=== PATIENT | female | born 1995 | race Caucasian/White ===

== ENCOUNTER 2020-08-07 20:37 | Emergency (ER) | payer OTHER, SELFPAY ==
--- NOTE | ~2020-08-07 | US_ITS ---
EXAMINATION: US OB limited DATE: 08/07/2020 23:15 INDICATION: Miscarriage. Early second trimester . TECHNIQUE: Real-time ultrasound of the pelvis was performed. The interpreting radiologist was not pre sent for the study. COMPARISON: None. FINDINGS: There is a single living fetus with heart rate of 150 beats per minute (bpm). The crown rump le ngth measures 9.1 cm which correlates with an estimated gestational age of 15 weeks and 0 days. The p lacenta is anterior with caudal margin 2.7 cm from the internal cervical os which is normal. Amniotic fluid volume is subjectively normal. IMPRESSION: 1. Single living fetus with heart rate of bpm. 2. Gestational age by ultrasound of 15 weeks 0 day(s) +/- 1 week and 2 days with ultrasound estimated date of delivery (JAIRO) of 01/29/2021. Please correlate with clinical information or other ultrasounds for most accurate JAIRO. Reviewed, dictated and finalized at location A. IMPRESSION: 1. Single living fetus with heart rate of bpm. 2. Gestational age by ultrasound of 15 weeks 0 day(s) +/- 1 week and 2 days wit h ultrasound estimated date of delivery (JAIRO) of 01/29/2021. Please correlate wi th clinical information or other ultrasounds for most accurate JAIRO.
[2020-08-07 20:38] VITALS: BP 157/117; PULSE 108; RESP 18; TEMP 36.6; O2SAT 100
[2020-08-07 21:05] LABS: Basophils Percent Auto 0.4 % (0.2-1.2); Eosinophils Absolute Auto 0.1 K/mm3 (0-0.3); Eosinophils Percent Auto 0.7 % (0-4.4); Hematocrit 39.5 % (37.0-47.0); Hemoglobin 13.5 g/dL (12.0-15.0); Immature Granulocyte Absolute 0.03 K/mm3 (0.00-0.031); Immature Granulocyte Percent A 0.3 % (0-0.5); Lymphocytes Absolute Auto 2.34 K/mm3 (0.9-3.2); Mean Corpuscular HGB Conc 34.2 g/dl (32-36); Mean Corpuscular Hemoglobin 28.1 pg (26-34); Mean Corpuscular Volume 82.1 fl (80-100); Mean Platelet Volume 8.9 fl (7.4-10.4); Monocytes Absolute Auto 0.5 K/mm3 (0.1-0.6); Monocytes Percent Auto 4.3 % (2.6-8.5); Neutrophils Absolute Auto 7.7 K/mm3 (1.3-6.7); Neutrophils Percent Auto 72.3 % (45.5-73.1); Platelet Count Result 330 k/mm3 (150-375); Red Blood Count 4.81 M/mm3 (4.2-5.4); Red Cell Distribution Width 12.9 % (11.5-14.5); White Blood Count 10.7 K/mm3 (4.5-10.0)
--- NOTE | 2020-08-07 21:09 | ED.FEMALEGU ---
HPI - Female Genitourinary General Chief complaint: Vaginal Bleeding Stated complaint: possible misscarriage, sent from OB Time Seen by Provider: 08/07/20 20:45 Source: patient and family Limitations: no limitations History of Present Illness HPI Narrative: 25 years old white female, 14 weeks presents with vaginal bleeding and lower abdominal cramps. Started 24 hours ago, spotting, heavy bleeding in the last few hours. Patient is 2, para 0 1. Patient denies any fever, chills, nausea, vomiting, lightheadedness or dizziness. History of anxiety, denies smoking, drinking or using marijuana. Related Data Home Medications Medication Instructions Recorded Confirmed sertraline mg 08/07/20 08/07/20 Allergies Allergy/AdvReac Type Severity Reaction Status Date / Time No Known Allergies Allergy Verified 08/07/20 20:38 Review of Systems Review of Systems: Narrative: CONSTITUTIONAL: Denies fever, chills, or sweats. EYES: Denies visual changes, redness, or discharge. ENT: Denies rhinorrhea, congestion, sore throat, or otalgia. CARDIOVASCULAR: Denies chest pain, palpitations, or edema. RESPIRATORY: Denies cough or dyspnea. GASTROINTESTINAL: Denies abdominal pain, nausea, vomiting, or diarrhea. GENITOURINARY: Denies dysuria or hematuria. SKIN: Denies rash or itching. MUSCULOSKELETAL: Denies back pain, joint pain, or myalgia. NEUROLOGIC: Denies headache, numbness, or weakness. PSYCHIATRIC: Denies anxiety or depression. PMFSH Past Medical History Medical History Anxiety Social History Social History Social History: Patient denies smoking, drinking or using marijuana Second hand tobacco smoke exposure: No Gender identity (if verbalized by the patient): Female Exam Narrative: Exam Narrative: General appearance: Well-developed, well-nourished Skin: Normal color Head: Normocephalic, nontraumatic Eyes: Clear conjunctiva ENT: Oropharynx normal, ears normal, nose normal Neck: Supple, nontender Chest and respiratory: Airway patent, no respiratory distress, no accessory muscle use Heart: Regular rate/rhythm Abdomen: Soft, nontender, no organomegaly, quiet bowel sounds Vascular: Normal peripheral pulses, normal capillary refill. Musculoskeletal: Normal range of motion, nontender back Neurologic: Alert and oriented ?3, [employer] OFF[employer] is normal as tested, no gross motor deficit : External Female Exam: normal external appearance and normal appearance of the urethra Speculum Exam - Vagina: normal appearance of the vagina Speculum Exam - Cervix: normal appearance of the cervix, normal palpation and Cervical os closed Bimanual exam- vagina & uterus: normal bimanual exam Course Course Emergency Course: Stable Vital Signs Vital signs: Vital Signs Temperature 36.6 C 08/07/20 20:38 Pulse Rate 108 H 08/07/20 20:38 Respiratory Rate 18 08/07/20 20:38 Blood Pressure 157/117 H 08/07/20 20:38 Pulse Oximetry 100 08/07/20 20:38 Temperature 36.6 C 08/07/20 20:38 Pulse Rate 108 H 08/07/20 20:38 Respiratory Rate 18 08/07/20 20:38 Blood Pressure 157/117 H 08/07/20 20:38 Pulse Oximetry 100 08/07/20 20:38 MDM - Female Genitourinary MDM Narrative Medical decision making narrative: Vaginal spotting, 14 weeks , unable to detect heart tone, pelvic ultrasound ordered. Further plan to follow. Pelvic exam within normal limits, no vaginal bleeding. Threatened is my concern. Lab Data Result diagrams: 08/07/20 20:59 Labs: Lab Results 08/07/20 08/07/20 Range/Units 20:5
[2020-08-07 23:48] VITALS: BP 141/86; PULSE 78; RESP 18; TEMP 36.9; O2SAT 99
== END 2020-08-07 23:49 | disposition home or self-care (01) ==
PROVIDERS: Emergency Medicine; Emergency Provider Emergency Medicine
DX: O20.0 Threatened abortion (principal); O99.342 Other mental disorders complicating pregnancy, second trimester; F41.9 Anxiety disorder, unspecified; Z3A.14 14 weeks gestation of pregnancy
CPT/HCPCS: 36415; 76815; 84702; 85025; 85461; 99284

== ENCOUNTER 2020-08-09 16:56 | Emergency (ER) | payer OTHER, SELFPAY ==
[2020-08-09 16:59] VITALS: BP 159/107; PULSE 100; RESP 19; TEMP 36.3; O2SAT 100
--- NOTE | 2020-08-09 17:30 | ED.FEMALEGU ---
HPI - Female Genitourinary General Chief complaint: Vaginal Bleeding Stated complaint: 15 wks preg, vb, dizzy Time Seen by Provider: 08/09/20 17:07 History of Present Illness HPI Narrative: 15 weeks . Seen here 2 days ago for vaginal bleeding. Light spotting at that time. Diagnosed with threatened . Bleeding became heavier today. Passing some small clots. Occasional light headedness. No pain, fever, discharge. Related Data Home Medications Medication Instructions Recorded Confirmed sertraline mg 08/07/20 08/07/20 Allergies Allergy/AdvReac Type Severity Reaction Status Date / Time No Known Allergies Allergy Verified 08/09/20 17:03 Review of Systems Review of Systems: All systems reviewed & are unremarkable except as noted in HPI and below Cardiovascular: Cardiovascular: Denies chest pain Respiratory: Respiratory: Denies dyspnea Gastrointestinal: Gastrointestinal: Denies abdominal pain, Denies nausea and Denies vomiting Genitourinary: Genitourinary: Denies hematuria and Denies dysuria [facility] Past Medical History Medical History Anxiety Social History Social History Social History: Patient denies smoking, drinking or using marijuana Second hand tobacco smoke exposure: No Gender identity (if verbalized by the patient): Female Exam Const: General: healthy appearing, no acute distress and alert Orientation/consciousness: patient oriented x3 HENMT: Head: normal to inspection Resp: Effort & Inspection: normal respiratory effort Auscultation: clear to auscultation bilaterally, no rales, no rhonchi and no wheezes Cardio: Jugular venous distension: no JVD Rate: regular rate Rhythm: regular rhythm Heart sounds: no murmurs GI: Inspection: non-distended GI Palp: Yes Soft to palpation and No Tenderness to palpation present (GI) Skin: General skin exam: normal color Neuro: General: patient oriented x3 and moves all extremities Speech: normal speech Extrem: General: no edema Psych: Appearance: well kempt Affect: Anxious affect present Course Vital Signs Vital signs: Vital Signs Temperature 36.3 C L 08/09/20 16:59 Pulse Rate 100 08/09/20 16:59 Respiratory Rate 19 08/09/20 16:59 Blood Pressure 159/107 H 08/09/20 16:59 Pulse Oximetry 100 08/09/20 16:59 Temperature 36.3 C L 08/09/20 16:59 Pulse Rate 94 08/09/20 18:20 Respiratory Rate 20 08/09/20 18:20 Blood Pressure 145/89 H 08/09/20 18:20 Pulse Oximetry 100 08/09/20 18:20 Procedures Other Procedure Procedure 1: Other Procedure: Bedside US IUP Grossly normal for reported dates. FHR 159 Reassuring movement I suspect small subchorionic hematoma MDM - Female Genitourinary MDM Narrative Medical decision making narrative: Reassuring US. Will discharge with bleeding precautions and pelvic rest. Lab Data Result diagrams: 08/09/20 17:37 08/09/20 17:37 Labs: Lab Results 08/09/20 08/09/20 08/09/20 Range/Units 17:37 17:37 17:37 WBC 11.1 H (4.5-10.0) K/mm3 RBC 4.53 (4.2-5.4) M/mm3 Hgb 12.7 (12.0-15.0) g/dL Hct 37.7 (37.0-47.0) % MCV 83.2 (80-100) fl MCH 28.0 (26-34) pg MCHC 33.7 (32-36) g/dl RDW 12.9 (11.5-14.5) % Plt Count 317 (150-375) k/mm3 MPV 9.0 (7.4-10.4) fl Immature Gran % (Auto) 0.5 (0-0.5) % Neut % (Auto) 72.2 (45.5-73.1) % Lymph % (Auto) 22.2 (18.3-44.2) % Morgan % (Auto) 4.2 (2.6-8.5) % Eos % (Auto) 0.6 (0-4.4) % Baso % (Auto) 0.3 (0.2-1.2) % Lymph # (Auto) 2.46 (0.9-3.2) K/mm3 Morgan # (Auto) 0.5 (0.1-0.6) K/mm3 Eos # (Auto) 0.1 (0-0.3) K/mm3 Baso # (Auto) 0.0 (0.0-0.1) K/mm3 Abs Immat Gran (auto) 0.05 H (0.00-0.031) K/mm3 Absolute Neuts (auto) 8.0 H (1.3-6.7) K/mm3 Absolute Nucleated RBC 0.0 (0.0-0.012
[2020-08-09 17:46] LABS: Basophils Percent Auto 0.3 % (0.2-1.2); Eosinophils Absolute Auto 0.1 K/mm3 (0-0.3); Eosinophils Percent Auto 0.6 % (0-4.4); Hematocrit 37.7 % (37.0-47.0); Hemoglobin 12.7 g/dL (12.0-15.0); Immature Granulocyte Absolute 0.05 K/mm3 (0.00-0.031); Immature Granulocyte Percent A 0.5 % (0-0.5); Lymphocytes Absolute Auto 2.46 K/mm3 (0.9-3.2); Lymphocytes Percent Auto 22.2 % (18.3-44.2); Mean Corpuscular HGB Conc 33.7 g/dl (32-36); Mean Corpuscular Volume 83.2 fl (80-100); Monocytes Absolute Auto 0.5 K/mm3 (0.1-0.6); Monocytes Percent Auto 4.2 % (2.6-8.5); Neutrophils Percent Auto 72.2 % (45.5-73.1); Platelet Count Result 317 k/mm3 (150-375); Red Blood Count 4.53 M/mm3 (4.2-5.4); Red Cell Distribution Width 12.9 % (11.5-14.5); White Blood Count 11.1 K/mm3 (4.5-10.0)
[2020-08-09 17:57] LABS: Anion Gap 10 mmol/L (8-16); Blood Urea Nitrogen 9 mg/dL (7-17); Calcium 10.2 mg/dL (8.4-10.2); Carbon Dioxide 26 mmol/L (22-30); Chloride 102 mmol/L (98-107); Estimated CRCL calculation 150 ml/min; Estimated Glomerular Filt Rate > 60; Glucose 98 mg/dL (65-105); Potassium 3.7 mmol/L (3.4-5.0); Sodium 138 mmol/L (137-145)
[2020-08-09 18:20] VITALS: BP 145/89; PULSE 94; RESP 20; O2SAT 100
== END 2020-08-09 18:21 | disposition home or self-care (01) ==
PROVIDERS: Emergency Medicine; Emergency Provider Emergency Medicine
DX: O20.9 Hemorrhage in early pregnancy, unspecified (principal); O99.342 Other mental disorders complicating pregnancy, second trimester; F41.9 Anxiety disorder, unspecified; Z3A.15 15 weeks gestation of pregnancy
CPT/HCPCS: 36415; 80048; 84702; 85025; 99283

== ENCOUNTER 2021-03-03 17:21 | Outpatient (CLI) | payer OTHER, SELFPAY | END 2021-03-03 17:22 | disposition home or self-care (01) | LOC: ANHCOVIDVC 17:22 | DX: Z23 Encounter for immunization (principal) | CPT/HCPCS: 0001A; 91300 ==

== ENCOUNTER 2021-03-24 17:12 | Outpatient (CLI) | payer OTHER, SELFPAY | END 2021-03-24 17:13 | disposition home or self-care (01) | LOC: ANHCOVIDVC 17:12 | DX: Z23 Encounter for immunization (principal) | CPT/HCPCS: 0002A; 91300 ==

== ENCOUNTER 2024-07-03 09:49 | Outpatient (CLI) | payer OTHER, SELFPAY | END 2024-07-03 09:50 | disposition home or self-care (01) | LOC: ANHAUDIO 09:50 | DX: H93.13 Tinnitus, bilateral (principal) | CPT/HCPCS: 92552; 92556; 92557; 92567 ==